=== PATIENT | female | born 1980 | race Caucasian/White ===

== ENCOUNTER → 2017-09-10 | Outpatient (CLI) | payer OTHER | LOC: M SFHCSACK 15:00 | PROVIDERS: ATTEND Physician Assistant | DX: Z00.00 Encounter for general adult medical examination without abnormal findings (principal) ==

== ENCOUNTER → 2017-09-10 | Outpatient (CLI) | payer OTHER | LOC: M SFHCSACK 15:00 | PROVIDERS: ATTEND Physician Assistant | DX: Z00.00 Encounter for general adult medical examination without abnormal findings (principal) ==

== ENCOUNTER 2017-12-24 09:09 | Day surgery (SDC) | payer OTHER ==
[2017-12-24 09:36] LABS: HEMATOCRIT 36.8 % (36.0-47.0); HEMOGLOBIN 12.2 g/dl (12.0-16.0); MEAN CORPUSCULAR HEMOGLOBIN 31.6 pg (27.0-33.0); MEAN CORPUSCULAR HGB CONC 33.2 g/dl (32.0-36.5); MEAN CORPUSCULAR VOLUME 95.3 fl (80.0-96.0); PLATELET COUNT, AUTOMATED 377 10^3/uL (150-450); RED BLOOD COUNT 3.86 10^6/uL (4.00-5.40); RED CELL DISTRIBUTION WIDTH 13.1 % (11.5-14.5); WHITE BLOOD COUNT 9.3 10^3/uL (4.0-10.0)
[2017-12-24 09:54] LABS: CONTROL LINE UCG INT CTR LINE PRESENT; URINE PREG TEST NEGATIVE (NEGATIVE)
[2017-12-24] MEDS: LR 1,000 ML IV (09:54)
[2017-12-24] MEDS ORDERED: KETOROLAC 60 MG/2 ML VIAL (J1885) As Ordered (10:05)
[2017-12-24] MEDS ORDERED: ONDANSETRON 4MG/2ML VIAL (J2405) As Ordered (10:05)
[2017-12-24] MEDS ORDERED: LIDOCAINE 2% INJ 100 MG/5 ML SDV (FOR ANES.) As Ordered (10:05)
[2017-12-24] MEDS ORDERED: METOCLOPRAMIDE INJ 10MG/2ML VIAL (J2765) As Ordered (10:05)
[2017-12-24] MEDS ORDERED: PROPOFOL 200 MG/20 ML VIAL As Ordered (10:05)
[2017-12-24] MEDS ORDERED: fentaNYL 100 MCG/2 ML INJECTION (J3010) As Ordered (10:06)
[2017-12-24] MEDS ORDERED: MIDAZOLAM INJ 2 MG/2 ML VIAL (J2250) As Ordered (10:06)
[2017-12-24] MEDS ORDERED: ONDANSETRON 4MG/2ML VIAL (J2405) IV (11:45)
[2017-12-24] MEDS ORDERED: fentaNYL 100 MCG/2 ML INJECTION (J3010) IV (11:45)
[2017-12-24] MEDS ORDERED: LR 1,000 ML IV ×2 (11:45)
[2017-12-24] MEDS ORDERED: PERCOCET 5MG/325MG TAB PO ×2 (11:45)
== END 2017-12-24 12:46 | disposition home or self-care (01) ==
LOC: M SDC 09:09
DX: N92.0 Excessive and frequent menstruation with regular cycle (principal); F31.9 Bipolar disorder, unspecified; E78.00 Pure hypercholesterolemia, unspecified; M54.5 Low back pain; L80 Vitiligo; F41.9 Anxiety disorder, unspecified; F32.9 Major depressive disorder, single episode, unspecified; F12.90 Cannabis use, unspecified, uncomplicated; Z79.899 Other long term (current) drug therapy; Z72.0 Tobacco use
CPT/HCPCS: 58563

== ENCOUNTER → 2019-04-18 | Outpatient (CLI) | payer BC ==
[~2019-04-18] MED LIST: SIMV40TA2 PO; VITA500055 PO
--- NOTE | 2019-04-18 15:58 | REP ---
Head CT without contrast: History: Transitional vision loss right eye. Comparison study: No comparison study. CT findings: Bone window settings demonstrate an intact bony calvarium. There is no evidence of skull fracture or incidental bony calvarial lesion. The visualized paranasal sinuses appear clear. No intraorbital abnormality is seen. On soft tissue window setting images; the lateral, third, and fourth ventricles are normal in size and position. Bustamante-white differentiation pattern is normal above and below the tentorium. There are is no evidence of intracranial hemorrhage. No mass, edema, infarction, or midline shift is seen. No extra-axial fluid collection is appreciated. Impression: Negative noncontrast head CT. Electronically Signed by Everton Alvarez MD 04/18/2019 03:49 P
== END ==
LOC: M RAD 14:57
PROVIDERS: ATTEND Physician Assistant
DX: R51 Headache (principal); H53.121 Transient visual loss, right eye

== ENCOUNTER 2021-11-24 11:46 | Emergency (ER) | payer BC, OTHER ==
[~2021-11-24] VITALS: Ht 167.6 cm; Wt 84.1 kg
[~2021-11-24 11:46] MED LIST changes: -SIMV40TA2 PO; +SIMV40TA20 PO
[2021-11-24] MEDS ORDERED: CITA10TA7 (12:02)
[2021-11-24 13:33] VITALS: BP 150/90
== END 2021-11-24 13:34 | disposition home or self-care (01) ==
LOC: M ED 11:46
DX: S20.221A Contusion of right back wall of thorax, initial encounter (principal); W19.XXXA Unspecified fall, initial encounter; Y92.9 Unspecified place or not applicable; Y93.9 Activity, unspecified; Y99.9 Unspecified external cause status; E78.5 Hyperlipidemia, unspecified; F41.9 Anxiety disorder, unspecified; F32.9 Major depressive disorder, single episode, unspecified; F17.200 Nicotine dependence, unspecified, uncomplicated; Z79.899 Other long term (current) drug therapy

== ENCOUNTER → 2022-07-28 | Outpatient (REF) | payer OTHER, MEDICAID ==
[~2022-07-28] MED LIST changes: +CITA10TA7
[2022-07-28 13:41] LABS: ALBUMIN 3.4 GM/DL (3.2-5.2); ALT/SGPT 31 U/L (12-78); BILIRUBIN,TOTAL 0.3 MG/DL (0.2-1.0); BLOOD UREA NITROGEN 8 MG/DL (7-18); CALCIUM LEVEL 9.2 MG/DL (8.5-10.1); CARBON DIOXIDE LEVEL 24 MEQ/L (21-32); CHLORIDE LEVEL 105 MEQ/L (98-107); CHOLESTEROL LEVEL 241 MG/DL (<200); CREATININE FOR GFR 0.87 MG/DL (0.55-1.30); FERRITIN 24 NG/ML (8-252); GLOMERULAR FILTRATION RATE > 60.0 (>58); GLUCOSE, FASTING 116 MG/DL (70-100); HDL CHOLESTEROL 79 MG/DL (>40); IRON (FE) 139 UG/DL (50-170); LDL CHOLESTEROL 131 MG/DL (<100); NON-HDL-C 162 MG/DL; PERCENT SATURATION 35.2 % (13.2-45.0); POTASSIUM SERUM 4.5 MEQ/L (3.5-5.1); SODIUM LEVEL 137 MEQ/L (136-145); TOTAL IRON BINDING CAPACITY 395 UG/DL (250-450); TOTAL PROTEIN 7.2 GM/DL (6.4-8.2); TRIGLYCERIDES LEVEL 157 MG/DL (<150)
[2022-07-28 14:22] LABS: BASO % 0.6 % (0.0-1.0); EOS # 0.1 10^3/uL (0.0-0.5); EOS % 1.4 % (0.0-3.0); HEMATOCRIT 41.3 % (36.0-47.0); HEMOGLOBIN 13.3 g/dl (12.0-15.5); LYMPH # 1.9 10^3/uL (1.5-5.0); LYMPH % 29.7 % (24.0-44.0); MEAN CORPUSCULAR HEMOGLOBIN 32.6 pg (27.0-33.0); MEAN CORPUSCULAR HGB CONC 32.2 g/dl (32.0-36.5); MEAN CORPUSCULAR VOLUME 101.2 fl (80.0-96.0); MONO # 0.5 10^3/uL (0.0-0.8); MONO % 7.9 % (2.0-8.0); NEUTROPHILS # 3.9 10^3/uL (1.5-8.5); NEUTROPHILS % 59.9 % (36.0-66.0); PLATELET COUNT, AUTOMATED 441 10^3/uL (150-450); RED BLOOD COUNT 4.08 10^6/uL (4.00-5.40); TOTAL 25(OH) VITAMIN D 14.9 NG/ML (30.0-100.0); WHITE BLOOD COUNT 6.4 10^3/uL (4.0-10.0)
[2022-07-28 15:03] LABS: HEPATITIS C VIRUS ABY INDEX < 0.0 INDEX (<0.8); HIV 1&2 SCREEN CENTAUR NEGATIVE (NEGATIVE)
== END ==
LOC: M LAB REF 11:51
PROVIDERS: ATTEND Pediatrics
DX: E55.9 Vitamin D deficiency, unspecified (principal); E78.5 Hyperlipidemia, unspecified; Z11.4 Encounter for screening for human immunodeficiency virus [HIV]; Z11.59 Encounter for screening for other viral diseases; R53.83 Other fatigue

== ENCOUNTER 2022-10-12 02:18 | Emergency (ER) | payer MEDICAID, OTHER ==
[~2022-10-12] VITALS: Ht 168.9 cm; Wt 92.3 kg
[2022-10-12 02:19] VITALS: BP 124/76
== END 2022-10-12 04:59 | disposition left against medical advice (07) ==
LOC: M ED 02:18
DX: Z53.21 Procedure and treatment not carried out due to patient leaving prior to being seen by health care provider (principal)

== ENCOUNTER → 2023-02-05 | Outpatient (REF) | payer OTHER ==
[2023-02-05 13:16] LABS: CHOLESTEROL RISK RATIO 2.66 (<5); HDL CHOLESTEROL 94.4 MG/DL (>40); LDL CHOLESTEROL 110.2 MG/DL (<100); NON-HDL-C 157.6 MG/DL
[2023-02-05 13:19] LABS: THYROID STIMULATING HORMONE 3.519 uIU/ML (0.55-4.78)
[2023-02-05 13:28] LABS: HEMOGLOBIN A1c 5.4 % (4.0-6.0)
== END ==
LOC: M LAB REF 12:10
PROVIDERS: ATTEND Pediatrics
DX: E66.9 Obesity, unspecified (principal)

== ENCOUNTER 2023-03-10 07:55 | Day surgery (SDC) | payer OTHER ==
[~2023-03-10] VITALS: Ht 167.6 cm; Wt 98.1 kg
[~2023-03-10 07:55] MED LIST changes: +BUPR300T92 PO; +VITA200032 PO; +ceFAZolin SOD 2 GM in IV 1 EA IV ONE
[2023-03-10] MEDS ORDERED: ROCURONIUM BROMIDE 50MG/5ML VIAL As Ordered ONE ×2 (08:32→11:41)
[2023-03-10] MEDS ORDERED: fentaNYL 100 MCG/2 ML INJECTION As Ordered ONE (08:32)
[2023-03-10] MEDS ORDERED: LIDOCAINE 2% 100MG/5ML SDV (FOR ANES.) As Ordered ONE (08:32)
[2023-03-10] MEDS ORDERED: propofoL 200 MG/20 ML VIAL As Ordered ONE (08:32)
[2023-03-10 08:33] LABS: HEMATOCRIT 35.6 % (36.0-47.0); HEMOGLOBIN 11.8 g/dl (12.0-15.5); MEAN CORPUSCULAR HEMOGLOBIN 32.2 pg (27.0-33.0); MEAN CORPUSCULAR HGB CONC 33.1 g/dl (32.0-36.5); PLATELET COUNT, AUTOMATED 334 10^3/uL (150-450); RED BLOOD COUNT 3.67 10^6/uL (4.00-5.40)
[2023-03-10] MEDS ORDERED: MIDAZOLAM INJ 2MG/2ML VIAL As Ordered ONE (08:33)
[2023-03-10] MEDS ORDERED: LR 1,000 ML IV SCH ×3 (08:45→13:45)
[2023-03-10] MEDS ORDERED: BUPIVACAINE HCL 0.25% 10ML VIAL As Ordered ONE (11:04)
[2023-03-10] MEDS ORDERED: HYDROmorphone HCL 2MG/ML 1ML VIAL As Ordered ONE (11:41)
[2023-03-10] MEDS ORDERED: METOCLOPRAMIDE INJ 10MG/2ML VIAL As Ordered ONE (11:49)
[2023-03-10] MEDS ORDERED: SUGAMMADEX SODIUM 500 MG/5 ML VIAL (BRIDION) As Ordered ONE (11:49)
[2023-03-10] MEDS ORDERED: ACETAMINOPHEN 1000MG 100ML IV BAG As Ordered ONE (11:49)
[2023-03-10] MEDS ORDERED: KETOROLAC 60MG 2ML VIAL As Ordered ONE (11:49)
[2023-03-10] MEDS ORDERED: ONDANSETRON 4MG 2ML VIAL As Ordered ONE (11:49)
[2023-03-10] MEDS ORDERED: ONDANSETRON 4MG 2ML VIAL IV PRN (13:25)
[2023-03-10] MEDS ORDERED: fentaNYL 100 MCG/2 ML INJECTION IV PRN (13:25)
[2023-03-10] MEDS ORDERED: oxyCODONE 5MG TAB PO PRN (13:25)
[2023-03-10] MEDS ORDERED: HYDROMORPHONE HCL 0.5 MG/ 0.5 ML SYRINGE IV PRN (13:25)
[2023-03-10] MEDS ORDERED: IBUP-1022 PO (13:29)
[2023-03-10] MEDS ORDERED: OXYC1TAB23 PO (13:29)
[2023-03-10] MEDS ORDERED: PERCOCET 5MG/325MG TAB PO PRN (13:45)
[2023-03-10 15:10] VITALS: BP 136/97
== END 2023-03-10 15:40 | disposition home or self-care (01) ==
LOC: M SDC 07:55
PROVIDERS: ATTEND Specialist
DX: N94.6 Dysmenorrhea, unspecified (principal); N92.0 Excessive and frequent menstruation with regular cycle; N72 Inflammatory disease of cervix uteri; N94.89 Other specified conditions associated with female genital organs and menstrual cycle; I10 Essential (primary) hypertension; F31.9 Bipolar disorder, unspecified; F32.A Depression, unspecified; F41.9 Anxiety disorder, unspecified; Z79.899 Other long term (current) drug therapy
CPT/HCPCS: 36415; 58571; 81025; 85027; 86850; 86900; 86901; 88307; J0131; J0690; J1100; J1170; J1885; J2250; J2405; J2765; J3010; S2900

== ENCOUNTER → 2023-03-24 | Outpatient (REF) | payer OTHER ==
[~2023-03-24] MED LIST changes: +IBUP-1022 PO; +OXYC1TAB23 PO; -ceFAZolin SOD 2 GM in IV 1 EA IV ONE
== END ==
LOC: M SFHCWAGY 13:05
PROVIDERS: ATTEND Specialist
DX: N39.0 Urinary tract infection, site not specified (principal)

== ENCOUNTER → 2023-04-21 | Outpatient (REF) | payer OTHER ==
[2023-04-21 12:46] LABS: BASO # 0.1 10^3/uL (0.0-0.2); BASO % 0.8 % (0.0-1.0); EOS # 0.2 10^3/uL (0.0-0.5); EOS % 2.4 % (0.0-3.0); HEMATOCRIT 36.4 % (36.0-47.0); HEMOGLOBIN 11.9 g/dl (12.0-15.5); LYMPH # 2.4 10^3/uL (1.5-5.0); LYMPH % 38.2 % (24.0-44.0); MEAN CORPUSCULAR HEMOGLOBIN 32.1 pg (27.0-33.0); MEAN CORPUSCULAR HGB CONC 32.7 g/dl (32.0-36.5); MEAN CORPUSCULAR VOLUME 98.1 fl (80.0-96.0); MONO # 0.6 10^3/uL (0.0-0.8); MONO % 9.3 % (2.0-8.0); NEUTROPHILS # 3.1 10^3/uL (1.5-8.5); NEUTROPHILS % 49.1 % (36.0-66.0); PLATELET COUNT, AUTOMATED 339 10^3/uL (150-450); RED BLOOD COUNT 3.71 10^6/uL (4.00-5.40); WHITE BLOOD COUNT 6.3 10^3/uL (4.0-10.0)
== END ==
LOC: M LAB REF 12:13
PROVIDERS: ATTEND Pediatrics
DX: D64.9 Anemia, unspecified (principal)

== ENCOUNTER → 2024-10-23 | Outpatient (REF) | payer OTHER ==
[~2024-10-23] MED LIST changes: +BUPR-597 PO; -BUPR300T92 PO
[2024-10-23 13:35] LABS: HEMOGLOBIN A1c 5.4 % (4.0-6.0)
[2024-10-23 13:37] LABS: ALBUMIN 3.9 G/DL (3.2-5.2); ALKALINE PHOSPHATASE 60 U/L (35-104); ALT/SGPT 35 U/L (7.0-40); AST/SGOT 22 U/L (<34); BILIRUBIN,TOTAL 0.5 MG/DL (0.3-1.2); BLOOD UREA NITROGEN 12 MG/DL (9-23); CALCIUM LEVEL 9.3 MG/DL (8.5-10.1); CARBON DIOXIDE LEVEL 22 MMOL/L (20-31); CHLORIDE LEVEL 107 MMOL/L (98-107); CREATININE FOR GFR 0.79 MG/DL (0.55-1.30); GLOMERULAR FILTRATION RATE > 60.0 (>58); GLUCOSE, FASTING 111 MG/DL (60-100); POTASSIUM SERUM 4.5 MMOL/L (3.5-5.1); SODIUM LEVEL 140 MMOL/L (136-145); TOTAL PROTEIN 7.5 G/DL (5.7-8.2)
[2024-10-23 13:38] LABS: FREE T4 1.15 NG/DL (0.89-1.76); THYROID STIMULATING HORMONE 3.991 uIU/ML (0.55-4.78)
== END ==
LOC: M LAB REF 12:27
PROVIDERS: ATTEND Family Medicine Addiction Medicine
DX: R63.5 Abnormal weight gain (principal)